=== PATIENT | female | born 1975 | race Caucasian/White ===

== ENCOUNTER 2019-11-29 21:26 | Emergency (ER) | payer SELFPAY ==
[~2019-11-29] VITALS: Ht 167.6 cm; Wt 68.0 kg
[2019-11-29 21:43] VITALS: BP 143/95; Ht 167.6 cm; Wt 68.0 kg
== END 2019-11-30 00:36 | disposition home or self-care (01) ==
LOC: ED 21:26
DX: R50.9 Fever, unspecified (principal); R05 Cough; M79.10 Myalgia, unspecified site; R06.02 Shortness of breath; Z20.828 Contact with and (suspected) exposure to other viral communicable diseases
CPT/HCPCS: U0003-CS